=== PATIENT | male | born 1930 | race Caucasian/White ===

== ENCOUNTER → 2016-09-20 | Day surgery (SDC) | payer MEDICARE, BC ==
[~2016-09-20] MED LIST: ACETAMINOPHEN PO; ACTOS PO; ADVIL PO; AMIODARONE HCL100 MG PO; AMIODARONE PO; AMLODIPINE BESYL5 MG PO; ANUSOL-HC21 GM PR; ASPIRIN PO; BUMETANIDE1 MG PO; CERTAGEN PO; CORDARONE200 M1 PO; COUMADIN2.5 MG PO; COUMADIN5 MG PO; COUMADIN7.5 MG PO; GLUCOPHAGE500 M1 PO; HUGO FOLDING WA1 PKT MC; HYDROCHLOROTHIA25 MG PO; HYZAAR 100-25 T1 TAB PO; IBUPROFEN PO; IMDUR-ER60 M1; ISORDIL PO; LASIX20 MG PO; LISINOPRIL PO; LISINOPRIL20 MG PO; LISINOPRIL5 MG PO; LORTAB 7.5-5001 TAB PO; MAGNESIUM400 M1; MAGNESIUM400 MG PO; METFORMIN HCL500 M1 PO; METFORMIN HCL500 M2 PO; METOPROLOL SUCC25 MG PO; METOPROLOL TAR25 MG PO; MOBIC PO; MULTI VITAMIN1 EACH PO; MULTI-DAY1 TAB PO; NEURONTIN100 MG PO; OMNICEF300 MG PO; PACERONE PO; PACERONE100 MG PO; PANTOPRAZOLE SO40 MG PO; PERCOCET 51 UDTAB 5/ PO; PREDNISONE5 M1 PO; VITAL-D RX TABL1 TAB PO; VITAMIN D-32000 UNI1 PO; VITAMIN D31000 UNI1 PO; WARFARIN SODIUM10 M1 PO; WARFARIN SODIUM10 MG PO; ZESTRIL40 MG PO
--- NOTE | ~2016-09-20 | OR ---
Unit #: [id number] #: [id number] Patient: DAGO PATIÑO [id number] [address] [place], [place] [address] [id number] O MR#: [id number] NAME: DAGO PATIÑO ROOM: Date of Procedure: 09/20/2016 Admission Date: 09/20/2016 Surgeon: Eddy Valadez M.D. : 1930 Attending Physician: Eddy Valadez M.D. Primary Care Physician: Edyta West M.D. SURGERY CENTER OPERATIVE NOTE PROCEDURE PERFORMED Lumbar epidural steroid injection under x-ray guided needle placement with provider administered conscious sedation. PREOPERATIVE DIAGNOSES 1. Acute lumbar radiculitis. 2. Spinal stenosis, lumbosacral spine. 3. Degenerative joint disease, lumbosacral spine. 4. Degenerative disk disease, lumbosacral spine. INDICATIONS FOR PROCEDURE The patient presents today with a longstanding history of chronic lumbar radicular pain secondary to his underlying degenerative processes. He has generally been managed fairly well medically, but does occasionally experience acute exacerbations, which to date have only responded to interventional pain management procedures. He presents today with an exacerbation of his lumbar radiculitis, which is similar to past and that has failed to respond to his ongoing and continuous conservative management. After discussing risks and benefits of proceeding today with lumbar approach epidural steroid injection including the potential for dual needle access technique, the patient agreed this would be the appropriate course of action. DESCRIPTION OF PROCEDURE He was then taken to the operating room where he was prepped and draped in sterile manner. Standard monitors were applied. He was sedated initially with 1 mg of IV Versed and required an additional mg of IV Versed throughout the duration of procedure. Lumbar epidural space was attempted to be accessed at the L4-L5 level unsuccessfully. Following this, it was accessed at the L5-S1 level with the potential for a dual needle technique as described before. However, after the injection of 2 mL of Omnipaque in which approximately 80% of the dye flow was in the superior direction. It was felt that a single injection at the L5-S1 will provide the coverage needed. Following the successful needle placement, which required 15 seconds of x-ray time, the patient received 8 mL of normal saline, 80 mg of methylprednisolone at the L5-S1 level. He tolerated this procedure well. He was discharged home with followup instructions, which include an offer to return to this clinic as early as 12/27/2016 if we could be of further service to him. Dictated by... Eddy Valadez M.D. Unit #: [id number] #: [id number] Patient: DAGO PATIÑO VIOLETTA/adam TD: 09/21/2016 02:48 JOB #: [id number] CC: Yolanda Castro M.D. SURGERY CENTER OPERATIVE NOTE X Russell Valadez MD X PROCEDURE OPERATIVE NOTE
== END | disposition home or self-care (01) ==
LOC: CCSC 08:50
DX: M48.06 Spinal stenosis, lumbar region (principal); M51.16 Intervertebral disc disorders with radiculopathy, lumbar region; J44.9 Chronic obstructive pulmonary disease, unspecified; K21.9 Gastro-esophageal reflux disease without esophagitis; K59.09 Other constipation; E11.319 Type 2 diabetes mellitus with unspecified diabetic retinopathy without macular edema; Z85.46 Personal history of malignant neoplasm of prostate; Z88.8 Allergy status to other drugs, medicaments and biological substances; Z90.49 Acquired absence of other specified parts of digestive tract; Z90.79 Acquired absence of other genital organ(s); Z87.01 Personal history of pneumonia (recurrent)
CPT/HCPCS: J1040; J2250

== ENCOUNTER → 2016-11-08 | Outpatient (CLI) | payer MEDICARE, BC ==
--- NOTE | ~2016-11-08 | US113 ---
[facility] A Service of [facility] & [facility] RADIOLOGY TEXT RESULTS PATIENT: DAGO PATIÑO LOCATION: [facility] : 30 UNIT #: [id number] AGE: [address]: Edyta West MD SEX: M ORDER DR: [id number] [facility] [address] [place], [place] [address] [id number] O MR#: [id number] Acc #: [id number] NAME: DAGO PATIÑO : 1930 SEX: M STUDY DATE/TIME: 11/08/2016 13:31 UNIT: [facility] ROOM: STUDY DESCRIPTION: US Scrotal Duplex Complete Attending Physician: Edyta West M.D. Referring Physician: Edyta West M.D. Ordering Physician: Edyta West M.D. Primary Care Physician: Edyta West M.D. MEDICAL IMAGING REPORT This report is preliminary unless electronic signature is present EXAM Scrotal duplex Doppler ultrasound. COMPARISON None INDICATION 86-year-old male with left testicular pain for 1 week, as well as mild erythema of the left scrotum. FINDINGS The testicles appear symmetrically mildly heterogeneous without discrete mass. There is symmetric color flow to both testicles. Cystic area is seen near the expected location of the mediastinum testis in the inferior pole of the right kidney measuring up to 2 mm. This likely represents a very small spermatocele. Right testicle measures 2.7 cm x 3.1 cm x 1.4 cm and demonstrates internal Doppler flow. Right epididymis is within normal limits. Left testicle measures 1.9 cm x 2.2 cm x 1.8 cm and demonstrates internal Doppler flow. There are multiple dilated veins within the left scrotum with internal sluggish flow seen on cine imaging, consistent with a qgytrmla-fr-lketo varicocele. There is a small left epididymal cyst. This measures up to 3 mm. Color flow increases within the varicocele with Valsalva. The largest dilated vein in the left pampiniform plexus measuring up to 4 mm. IMPRESSION 1. Fvmbesvg-kg-aibvp sized left varicocele with sluggish internal flow. 2. No evidence of epididymoorchitis. No suspicious testicular lesions. There is a 2 mm right spermatocele and a 3 mm benign left epididymal cyst. [facility] A Service of [facility] & [facility] RADIOLOGY TEXT RESULTS PATIENT: DAGO PATIÑO LOCATION: [facility] : 30 UNIT #: [id number] AGE: [address]: Edyta West MD SEX: M ORDER DR: Dictated by... Reed Adler M.D. THIS IS AN ELECTRONICALLY VERIFIED REPORT Reed Adler M.D. at 11/10/2016 4:06 PM FABIAN/mickey TD: 11/08/2016 17:20 JOB #: [id number] MEDICAL IMAGING REPORT Page 1 of 1 COPY
== END | disposition home or self-care (01) ==
LOC: CGUS 13:02
DX: N50.82 Scrotal pain (principal); N50.9 Disorder of male genital organs, unspecified; I86.1 Scrotal varices; N43.41 Spermatocele of epididymis, single; N50.3 Cyst of epididymis
CPT/HCPCS: 93975

== ENCOUNTER → 2016-12-27 | Day surgery (SDC) | payer MEDICARE, BC ==
--- NOTE | ~2016-12-27 | OR ---
Unit #: [id number] #: [id number] Patient: DAGO PATIÑO [id number] [address] [address] [id number] O MR#: [id number] NAME: DAGO PATIÑO ROOM: Date of Procedure: 12/27/2016 Admission Date: 12/27/2016 Surgeon: Eddy Valadez M.D. : 1930 Attending Physician: Eddy Valadez M.D. Referring Physician: Eddy Valadez M.D. Primary Care Physician: Edyta West M.D. SURGERY CENTER OPERATIVE NOTE PROCEDURE PERFORMED Lumbar epidural steroid injection under x-ray guided needle placement with provider administered conscious sedation. PREOPERATIVE DIAGNOSES 1. Acute lumbar radiculitis. 2. Spinal stenosis, lumbosacral spine. 3. Degenerative joint disease, lumbosacral spine. 4. Degenerative disk disease, lumbosacral spine. INDICATIONS FOR PROCEDURE The patient presents today with longstanding history of chronic lumbar radicular pain secondary to his underlying degenerative processes. He is generally fairly well managed medically, but does occasionally experienced acute exacerbations, which to date have only responded to epidural steroid injections. His usual amount of relief is 60% to 80% for 6 to 8 weeks. He is currently experiencing just such an exacerbation which had broken through his ongoing continuous conservative measures which include medical treatment. After discussing risks and benefits of proceeding today with a lumbar approach epidural steroid injection, the patient agreed this would be the appropriate course of action. DESCRIPTION OF PROCEDURE He was then taken to the operating room, where he was prepped and draped in a sterile manner. Standard monitors were applied. He was sedated initially with 1 mg of IV Versed and required an additional 2 mg of IV Versed throughout the duration of the procedure. Attempts at the L4-L5 level were unsuccessful. Following this, he was accessed with relative ease at the L5-S1 level, where needle placement was confirmed with injection of 2 mL of Omnipaque following loss of resistance with the x-ray guidance. The patient received 4 mg of normal saline and 40 mg of methylprednisolone at the L5-S1 as we attempted to then access the epidural space at the L3-L2 and L1-L2 levels all unsuccessfully. The patient was becoming uncomfortable despite his sedation and we were uncomfortable with continuing as he was becoming uncomfortable with his position as well as multiple attempts. We discussed follow up with him on 03/28/2017 and he was agreeable to this plan. Dictated by... Yolanda Mondragon/adam Unit #: [id number] #: [id number] Patient: DAGO PATIÑO TD: 12/28/2016 01:18 JOB #: [id number] CC: Aung Johnson M.D. SURGERY CENTER OPERATIVE NOTE Page 1 of 1 X Russell Valadez MD X PROCEDURE OPERATIVE NOTE
== END | disposition home or self-care (01) ==
LOC: CCSC 08:45
DX: G89.29 Other chronic pain (principal); M51.17 Intervertebral disc disorders with radiculopathy, lumbosacral region; M48.07 Spinal stenosis, lumbosacral region; M47.27 Other spondylosis with radiculopathy, lumbosacral region; E11.319 Type 2 diabetes mellitus with unspecified diabetic retinopathy without macular edema; J44.9 Chronic obstructive pulmonary disease, unspecified; K21.9 Gastro-esophageal reflux disease without esophagitis; Z87.01 Personal history of pneumonia (recurrent); Z85.46 Personal history of malignant neoplasm of prostate; Z88.8 Allergy status to other drugs, medicaments and biological substances; Z79.01 Long term (current) use of anticoagulants; Z79.899 Other long term (current) drug therapy; Z90.49 Acquired absence of other specified parts of digestive tract; Z98.41 Cataract extraction status, right eye; Z98.42 Cataract extraction status, left eye; Z90.79 Acquired absence of other genital organ(s); Z98.890 Other specified postprocedural states
CPT/HCPCS: J1040; J2250